=== PATIENT | female | born 1935 | race Caucasian/White ===

== ENCOUNTER 2017-09-07 10:15 | Outpatient (CLI) | payer MEDICARE, BC ==
--- NOTE | 2017-09-07 11:43 | RAD ---
TWO VIEW CHEST: History: Dyspnea. Comparison: 11-28-07 FINDINGS: Atherosclerosis of the aorta. Normal cardiac silhouette. Pulmonary vessels and hilum are normal. Cost ophrenic angles are clear. Hyperinflation with chronic changes. No consolidation or mass. No pneumoth orax or osseous abnormalities. IMPRESSION: Atherosclerosis. Hyperinflation with chronic changes. POS: [facility]
== END 2017-09-07 10:16 | disposition home or self-care (01) ==
LOC: RAD 10:15
PROVIDERS: ATTEND Internal Medicine Critical Care Medicine
DX: R06.00 Dyspnea, unspecified (principal); I70.90 Unspecified atherosclerosis
CPT/HCPCS: 71046

== ENCOUNTER 2017-09-23 08:25 | Outpatient (CLI) | payer MEDICARE, BC ==
--- NOTE | 2017-09-23 09:44 | RAD ---
2 VEIWS CHEST: Date: 09/23/17 COMPARISON: 09/07/17. HISTORY: Dyspnea. FINDINGS: Two views of the chest show a cardiomediastinal silhouette which is upper limits of normal in size. I ncreased interstitial lung markings are present. There is no evidence of consolidation, mass, or pleu ral effusion. Degenerative changes are seen in the spine. IMPRESSION: No evidence of acute cardiopulmonary disease. POS: [facility]
== END 2017-09-23 08:26 | disposition home or self-care (01) ==
LOC: RAD 08:25
PROVIDERS: ATTEND Internal Medicine Critical Care Medicine
DX: R06.00 Dyspnea, unspecified (principal)
CPT/HCPCS: 71046

== ENCOUNTER 2017-10-28 08:58 | Outpatient (CLI) | payer MEDICARE, BC | END 2017-10-28 08:59 | disposition home or self-care (01) | LOC: CP 08:58 | PROVIDERS: ATTEND Internal Medicine Critical Care Medicine | DX: J45.909 Unspecified asthma, uncomplicated (principal) | CPT/HCPCS: 94060; 94727; 94729 ==

== ENCOUNTER 2017-12-09 13:18 | Outpatient (CLI) | payer MEDICARE, BC ==
--- NOTE | 2017-12-09 15:18 | RAD ---
CHEST 2 VIEWS: Date: 12/09/17 COMPARISON: 11/12/17. HISTORY: Dyspnea. Atherosclerosis. FINDINGS: Normal cardiac silhouette. Lungs are hyperinflated. Increased interstitial opacities are noted. Chron ic changes are favored. No consolidation or mass. No pneumothorax or osseous abnormalities. IMPRESSION: 1. Atherosclerosis. 2. Hyperinflation with chronic changes. POS: [facility]
== END 2017-12-09 13:19 | disposition home or self-care (01) ==
LOC: RAD 13:18
PROVIDERS: ATTEND Internal Medicine Critical Care Medicine
DX: R06.00 Dyspnea, unspecified (principal); R91.8 Other nonspecific abnormal finding of lung field; I70.90 Unspecified atherosclerosis
CPT/HCPCS: 71046